=== PATIENT | male | born 1970 | race Caucasian/White ===

== ENCOUNTER 2017-01-11 06:25 | Inpatient (IN) | payer BC ==
[~2017-01-11] VITALS: Ht 180.3 cm; Wt 112.3 kg
--- NOTE | ~2017-01-11 | DS ---
PATIENT'S NAME: BRIANDA COFFMAN [facility] AGE: 46 Y [address] ROOM: [place] [address] LOCATION: GICU ADMIT DATE: 01/11/2017 Discharge Summary DISCHARGE DATE: 01/13/2017 FAMILY PHYSICIAN: Sawyer Valencia ATTENDING PHYSICIAN: July Richard PRIMARY DIAGNOSES: 1. Acute encephalopathy. 2. Delirium tremens. 3. Alcohol dependence. 4. Alcoholic hepatitis. 5. Thrombocytopenia. 6. Hypokalemia. 7. Hypomagnesemia. 8. Hypothyroidism. OPERATIONS/PROCEDURES: Abdominal ultrasound performed 01/11/2017 demonstrated fatty liver, no focal lesions, no ascites, and normal spleen. HISTORY OF PRESENTING ILLNESS/REASON FOR ADMISSION: Please refer to the H and P dictated 01/11/2017. HOSPITAL COURSE: The patient was admitted to the hospital as noted above, acutely encephalopathic, and upon transfer from an outside facility. He has a known history of alcohol abuse, alcohol dependence, and previous history of delirium tremens. He did not demonstrate any seizure activity. He was placed in the Intensive Care Unit. He was placed on the CIWA protocol. His clinical condition improved relatively quickly. He did receive supportive cares including IV fluids and symptomatic measures with IV lorazepam. By the end of the 3rd day of his hospital stay, he was felt to be essentially back at baseline. We did spend a good deal of time discussing alcohol treatment and alcohol treatment options for him. He refused consideration for inpatient care citing that he has accomplished this before unsuccessfully. Additionally, refused any sort of outpatient counseling or attending AA meetings. Additionally, he denied any suicidal thinking, self-destructive thinking, or homicidal ideations. I did discuss the case with SERA Napoles who will be assuming care for him in [place]. At that point, it was felt reasonable to allow discharge to home with plans for close clinical followup with Garry Blas. The patient himself indicated strong desire for abstinence from alcohol. PATIENT'S NAME: BRIANDA COFFMAN [facility] AGE: 46 Y [address] ROOM: [id number] [place] [id number] LOCATION: GICU ADMIT DATE: 01/11/2017 Discharge Summary DISCHARGE DATE: 01/13/2017 FAMILY PHYSICIAN: Sawyer Valencia ATTENDING PHYSICIAN: July Richard DISCHARGE INSTRUCTIONS: 1. Diet: Regular as tolerated. No alcohol. 2. Activity as tolerated. MEDICATIONS: 1. Mag oxide 400 mg p.o. daily. 2. Multiple vitamin daily. 3. Folate 1 mg p.o. daily. 4. Clonazepam 3 mg p.o. q.h.s. 5. Methylphenidate 20 mg p.o. b.i.d. 6. Levothyroxine 50 mcg p.o. daily. 7. Metoprolol-XL 50 mg p.o. daily. 8. Protonix 40 mg p.o. daily. 9. Duloxetine 60 mg p.o. daily. FOLLOW UP: He will follow up with Garry Blas PA-C in [place] in 3-5 days. CONDITION ON DISCHARGE: Fair. Total time spent on discharge process was 45 minutes. MD ANUM HUI/ronda /[id number] d: 01/14/17 0303 t: 01/15/17 1814, DISCHARGE SUMMARY
--- NOTE | ~2017-01-11 | HP ---
PATIENT'S NAME: BRIANDA COFFMAN [facility] AGE: 46 Y [address] ROOM: [address] [place] [id number] LOCATION: GICU ADMIT DATE: 01/11/2017 History & Physical DISCHARGE DATE: FAMILY PHYSICIAN: PHYSICIAN, UNKNOWN ATTENDING PHYSICIAN: TERI MAY DATE OF SERVICE: CHIEF COMPLAINT: Alcohol withdrawal, delirium tremens. HISTORY OF PRESENT ILLNESS: This is a 46-year-old male presenting from [facility] after presenting there with agitation and delirium. The patient has a long history of alcohol abuse and previous admission to this hospital as well and a lengthy stay within the ICU for management of alcohol withdrawal. The patient during my evaluation was sleepy but arousable and to my interaction with him after about 2 mg of IV Ativan and 5 mg of IV Haldol that he had at [facility] en route to here as well. So my conversations with him were pretty limited because of sedation. The report is that the patient is pretty agitated and difficult to control, requiring not much benzos and Haldol to calm him. Report is that the patient relapsed to drinking again and then stopped about two days ago, and then this happened. The patient apparently has had a bowel movement with dark- looking stool as well per report from [facility]. Otherwise, the patient's vital signs were stable and currently resting comfortably. PAST MEDICAL HISTORY: 1. Alcohol abuse. 2. History of DTs. SOCIAL HISTORY: The patient with a history of significant alcohol use and prior admission with this. No reports of smoking or drug use. FAMILY HISTORY: Unable to fully gather due to patient's current mental status. REVIEW OF SYSTEMS: A complete review of systems was not able to be gathered due to the patient's current mental status. PHYSICAL EXAMINATION: VITAL SIGNS: Blood pressure 129/88, pulse 98, and saturating 92% on 2 L of oxygen. The patient is afebrile though. GENERAL: The patient is sleepy, but arousable and awake, alert, oriented x2. PATIENT'S NAME: BRIANDA COFFMAN [facility] AGE: 46 Y [address] ROOM: [address] [place], [place] [address] LOCATION: GICU ADMIT DATE: 01/11/2017 History & Physical DISCHARGE DATE: FAMILY PHYSICIAN: PHYSICIAN, UNKNOWN ATTENDING PHYSICIAN: TERI MAY HEENT: Dry mucosal membranes. No scleral icterus. Conjunctival pallor noted however. HEART: S1 and S2 regular rate and rhythm. CHEST: Clear to auscultation bilaterally. ABDOMEN: Soft, nontender, and nondistended with positive bowel sounds. NEUROLOGIC: Grossly nonfocal. MUSCULOSKELETAL: No joint effusion, erythema, or tenderness noted. SKIN: Without rashes or lesions. LABORATORY DATA AND IMAGING STUDIES: Significant labs: The patient has AST of 2678, ALT of 931, total bilirubin of 2.4, and potassium 3.5. ASSESSMENT AND PLAN: 1. Delirium tremens. The patient has a recurrent history of this. Last drink about 48 hours ago. We will admit to the intensive care unit and closely manage. We will use CIWA protocol for now and escalate as needed. The patient apparently had been admitted for a similar problem last year requiring a lengthy ICU stay including intubation. 2. Alcoholic hepatitis. AST of 2678, ALT 931, and total bilirubin of 2.4. MDS score is around 10 based on labs at [place]. He will repeat these labs again. We will continue supportive care with IV fluids and electrolyte replacement for now and continue to monitor levels. We will also get an ultrasound of his liver to further assess. 3. Alcohol abuse. We will involve Social Care after he gets better from acute illness. 4. Deep venous thrombosis prophylaxis. We will use SCDs for concerns of possible dark-looking stool that he has had. We will keep an eye on his H and H's, and we will check stool for occult blood. MD TAMMIE SIMPSON/ronda /[id number] D: T: HISTORY & PHYSICAL
[~2017-01-11 06:25] MED LIST: FEOSOL325 MG PO; FOLIC ACID1 MG PO; HYGROTON25 MG PO; INDOCIN50 MG PO; KLONOPIN1 MG PO; LEVOTHROID (SY50 MCG PO; MAGNESIUM250 M1 PO; METADATE ER20 MG PO; PAXIL20 MG PO; PRILOSEC20 MG PO; THERAGRAN-M1 TAB PO; TOPROL XL25 MG PO; TRANXENE T-TAB7.5 MG PO; ZANTAC (NON-FO150 MG PO
[2017-01-11 10:37] LABS: BASOPHIL % 0.3 %; EOSINOPHIL % 0.3 %; HEMATOCRIT 39.4 % (37.0-53.0); HEMOGLOBIN 13.4 g/dL (12.0-17.0); IMMATURE GRANULOCYTE % 0.3 %; LYMPHOCYTE # 0.6 K/uL (0.8-4.0); LYMPHOCYTE % 7.8 %; MCH 33.3 pg (27.0-34.0); MONOCYTE # 0.2 K/uL (0.0-1.0); MONOCYTE % 2.5 %; MPV 10.6 fl (9.4-12.4); NEUTROPHIL # (ANC) 6.6 K/uL (1.4-9.0); NEUTROPHIL % 88.8 %; NRBC % 0 /100WBC (0-0.00); RBC 4.02 M/uL (4.00-6.00); RDW-CV 12.9 % (11.9-14.6); WBC 7.5 K/uL (4.0-11.0)
[2017-01-11 10:38] LABS: PLATELET COUNT 33 K/uL (150-450)
[2017-01-11 10:43] LABS: INR - (THERAPEUTIC) 1.48 (0.92-1.07); PROTIME 15.6 SECONDS (9.8-11.4)
[2017-01-11 10:49] LABS: MAGNESIUM 1.8 mg/dL (1.8-2.6)
[2017-01-11 10:57] LABS: ALBUMIN 3.6 gm/dL (3.5-5.0); ALK PHOS 85 IU/L (33-138); ANION GAP 11.5 (10.0-19.0); BLOOD UREA NITROGEN 18 mg/dL (6-24); CHLORIDE 93 mMol/L (96-110); CO2 31 mMol/L (22-32); CREATININE 1.2 mg/dL (0.6-1.3); ESTIMATED GFR (MDRD EQUATION) > 60; POTASSIUM 3.5 mMol/L (3.7-5.1); SODIUM 132 mMol/L (135-145); TOTAL BILIRUBIN 1.6 mg/dL (0.0-1.5); TOTAL PROTEIN 6.9 g/dL (6.0-8.4)
[2017-01-11 11:22] LABS: ALT 2742 IU/L (12-78); AST 8426 IU/L (10-40)
[2017-01-11 14:18] LABS: AMPHETAMINE NEGATIVE (NEGATIVE); BARBITURATE POSITIVE (NEGATIVE); COCAINE NEGATIVE (NEGATIVE); OPIATES POSITIVE (NEGATIVE)
[2017-01-12 05:04] LABS: BASOPHIL # 0.1 K/uL (0.0-0.2); BASOPHIL % 1.1 %; EOSINOPHIL # 0.1 K/uL (0.0-0.5); EOSINOPHIL % 1.7 %; HEMATOCRIT 36.6 % (37.0-53.0); HEMOGLOBIN 12.5 g/dL (12.0-17.0); IMMATURE GRANULOCYTE % 0.2 %; LYMPHOCYTE # 0.9 K/uL (0.8-4.0); LYMPHOCYTE % 16.6 %; MCH 33.2 pg (27.0-34.0); MCHC 34.2 gm/dL (32.0-36.5); MCV 97.3 fl (83.0-98.0); MONOCYTE # 0.3 K/uL (0.0-1.0); MONOCYTE % 4.6 %; MPV 9.6 fl (9.4-12.4); NEUTROPHIL # (ANC) 4.1 K/uL (1.4-9.0); NEUTROPHIL % 75.8 %; NRBC % 0 /100WBC (0-0.00); RBC 3.76 M/uL (4.00-6.00); RDW-CV 12.8 % (11.9-14.6); WBC 5.4 K/uL (4.0-11.0)
[2017-01-12 05:06] LABS: PLATELET COUNT 45 K/uL (150-450)
[2017-01-12 05:24] LABS: ANION GAP 9.3 (10.0-19.0); BLOOD UREA NITROGEN 18 mg/dL (6-24); CALCIUM 7.8 mg/dL (8.5-10.5); CHLORIDE 100 mMol/L (96-110); CO2 29 mMol/L (22-32); CREATININE 1.1 mg/dL (0.6-1.3); ESTIMATED GFR (MDRD EQUATION) > 60; MAGNESIUM 2.1 mg/dL (1.8-2.6); PHOSPHORUS 2.4 mg/dL (2.5-4.9); POTASSIUM 3.3 mMol/L (3.7-5.1); SODIUM 135 mMol/L (135-145)
[2017-01-12] MEDS ORDERED: CYMBALTA60 MG PO (10:10)
[2017-01-13 05:03] LABS: BASOPHIL # 0.1 K/uL (0.0-0.2); BASOPHIL % 0.6 %; EOSINOPHIL # 0.2 K/uL (0.0-0.5); HEMATOCRIT 35.9 % (37.0-53.0); HEMOGLOBIN 12.5 g/dL (12.0-17.0); IMMATURE GRANULOCYTE % 0.2 %; LYMPHOCYTE # 0.9 K/uL (0.8-4.0); LYMPHOCYTE % 9.2 %; MCH 33.6 pg (27.0-34.0); MCHC 34.8 gm/dL (32.0-36.5); MCV 96.5 fl (83.0-98.0); MONOCYTE # 0.6 K/uL (0.0-1.0); MPV 10.3 fl (9.4-12.4); NEUTROPHIL # (ANC) 7.7 K/uL (1.4-9.0); NRBC % 0 /100WBC (0-0.00); RBC 3.72 M/uL (4.00-6.00); RDW-CV 12.5 % (11.9-14.6); WBC 9.4 K/uL (4.0-11.0)
[2017-01-13 05:07] LABS: PLATELET COUNT 80 K/uL (150-450)
[2017-01-13 05:23] LABS: ALBUMIN 3.2 gm/dL (3.5-5.0); ALK PHOS 104 IU/L (33-138); ANION GAP 11.1 (10.0-19.0); BLOOD UREA NITROGEN 11 mg/dL (6-24); CHLORIDE 101 mMol/L (96-110); CO2 28 mMol/L (22-32); CREATININE 0.9 mg/dL (0.6-1.3); ESTIMATED GFR (MDRD EQUATION) > 60; POTASSIUM 3.1 mMol/L (3.7-5.1); SODIUM 137 mMol/L (135-145); TOTAL BILIRUBIN 1.7 mg/dL (0.0-1.5); TOTAL PROTEIN 6.3 g/dL (6.0-8.4)
[2017-01-13 05:28] LABS: MAGNESIUM 1.6 mg/dL (1.8-2.6); PHOSPHORUS 2.6 mg/dL (2.5-4.9)
[2017-01-13 05:38] LABS: ALT 2004 IU/L (12-78); AST 1497 IU/L (10-40)
[2017-01-13] MEDS ORDERED: TOPROL XL 5050 MG PO (09:45)
[2017-01-13] MEDS ORDERED: PROTONIX40 MG PO (09:47)
[2017-01-13] MEDS ORDERED: MAG-OX-400(241400 MG PO (09:50)
[2017-01-13] MEDS ORDERED: THERA-VITE W/ B1 TAB PO (09:51)
[2017-01-13] MEDS ORDERED: FOLIC ACID1 MG PO (09:57)
== END 2017-01-13 12:30 | disposition disaster alternative care site (69) | DRG 896 ==
LOC: GICU 07:49 → GPCU 07:49 → GICU 09:05
PROVIDERS: Family Medicine; ADMIT Internal Medicine
DX: F10.231 Alcohol dependence with withdrawal delirium (principal); G93.40 Encephalopathy, unspecified; D69.6 Thrombocytopenia, unspecified; K70.10 Alcoholic hepatitis without ascites; E83.42 Hypomagnesemia; E87.6 Hypokalemia; E03.9 Hypothyroidism, unspecified; G47.00 Insomnia, unspecified
CPT/HCPCS: C9113; G0480; J2060; J3411; J3475; J3480; J7030; J7050

== ENCOUNTER 2017-03-11 20:37 | Inpatient (IN) | payer BC ==
[~2017-03-11] VITALS: Ht 180.3 cm; Wt 108.7 kg
--- NOTE | ~2017-03-11 | DS ---
PATIENT'S NAME: BRIANDA COFFMAN [facility] AGE: 46 Y [address] ROOM: [id number] [place], [place] [address] LOCATION: GPCU ADMIT DATE: 03/11/2017 Discharge Summary DISCHARGE DATE: 03/14/2017 FAMILY PHYSICIAN: Alhaji Yang MD ATTENDING PHYSICIAN: Yosi Cosme REASON FOR ADMISSION: Hematemesis. PRINCIPAL DIAGNOSIS: Candidal esophagitis. SECONDARY DIAGNOSES: 1. Alcohol withdrawal in setting of ongoing alcohol abuse. 2. Essential hypertension. 3. Hypothyroidism. 4. Chronic NSAID use. 5. Acute kidney injury, resolved. 6. Mild acute hypoxic respiratory failure, resolved (probable obstructive sleep apnea). PROCEDURES DURING ADMISSION: EGD performed March 12 showing severe esophagitis with probable Johanna esophagitis by appearance with a white coating and ulcerations, biopsies done as well as gastric biopsies done with H. pylori staining negative. HOSPITAL COURSE: Mr. Coffman is a pleasant 46-year-old gentleman with medical history notable for heavy alcohol use and multiple admissions for withdrawals and DTs admitted to an outside facility with hematemesis. He had admitted to drinking a 5th of hard liquor every day with the last drink just a day prior to admission. He had been vomiting multiple times prior to developing hematemesis. He had endorsed ongoing odynophagia with occasional chest discomfort as well prior to admission. Initial lab workup notable for leukocytosis to 17 and creatinine of 1.5. On hospital day 2, the patient was sent for EGD with findings noted above and concern for candidal esophagitis. He was started on nystatin therapy as well as continued on PPI. He endorsed ongoing pain during his course until date of discharge when he had noted things had significantly improved. He did require GI cocktail x2 early on admission for pain and was sent to continue home [place] for pain. Findings of probable candidal esophagitis did prompt HIV testing with concern for immuno- compromised state, which was negative. No other obvious endocrinopathies were appreciated during stay. Of note, the patient had been taking both meloxicam and naproxen at home, which likely contributed to presentation. During stay, there were no significant concerns related to alcohol withdrawal. The patient was monitored on the CIWA protocol and did well. The patient will be sent home with nystatin as well as sucralfate and pain medications as needed. He should follow up with his PCP in approximately 1 week. I did discuss with the PATIENT'S NAME: BRIANDA COFFMAN [facility] AGE: 46 Y [address] ROOM: [id number] [place], [place] [address] LOCATION: GPCU ADMIT DATE: 03/11/2017 Discharge Summary DISCHARGE DATE: 03/14/2017 FAMILY PHYSICIAN: Alhaji Yang MD ATTENDING PHYSICIAN: Yosi Cosme A patient that should symptoms fail to improve over the coming weeks once the biopsies are finalized, he may need a repeat endoscopy to ensure adequate treatment of candidal esophagitis versus empiric retreatment with a longer course. Hemoglobin on date of discharge is 12.9. Creatinine had returned to normal at 1.1. Vital signs stable. No hemodynamic instability during stay. MEDICATIONS AND PERTINENT CHANGES: Addition of nystatin and sucralfate. PENDING TESTS AT TIME OF DISCHARGE: I would recommend outpatient sleep study be performed as the patient was noted to have mild hypoxic respiratory failure while sleeping at night and would suspect obstructive sleep apnea. CONSULTANTS: Gastroenterology. CONDITION ON DATE OF DISCHARGE: VITAL SIGNS: Last known vital signs prior to discharge notable for temp 98.5, pulse 86, respirations 18, blood pressure 149/96, and saturating 94% on room air. GENERAL: No acute distress, sitting up in bed, comfortable. CARDIOVASCULAR: Regular rate and rhythm. No murmurs, rubs, or gallops appreciated. LUNGS: Clear to auscultation bilaterally. Normal effort on room air. ABDOMEN: Soft, nontender, nondistended. Normoactive bowel sounds. EXTREMITIES: Without edema. NEUROLOGICAL: Alert, oriented, no focal deficits appreciated. DISPOSITION: The patient was discharged home. Advised on selecting a single nonsteroidal agent to use sparingly, but would recommend discontinuation of multiple agents concurrently. We would also discourage further alcohol use as this likely contributed to his presentation. Okay to return to normal diet sucralfate given on discharge. Followup visits and tests will be with PCP in 1 week. Time spent on date of discharge including direct patient care and coordination of discharge activities was 37 minutes. VIRGILIO D SHUDA, MD JDS/modl /[id number] d: 03/15/17 0141 t: 03/15/17 0741, DISCHARGE SUMMARY
--- NOTE | ~2017-03-11 | HP ---
PATIENT'S NAME: BRIANDA COFFMAN [facility] AGE: 46 Y [address] ROOM: [place] [address] LOCATION: GPCU ADMIT DATE: 03/11/2017 History & Physical DISCHARGE DATE: FAMILY PHYSICIAN: PHYSICIAN, UNKNOWN ATTENDING PHYSICIAN: ROB DAVIS DATE OF SERVICE: CHIEF COMPLAINT: Hematemesis. HISTORY OF PRESENT ILLNESS: A 46-year-old gentleman with a past medical history of heavy alcohol use, had multiple admissions for alcohol withdrawals and delirium tremens, was admitted to the outside facility with hematemesis. On my encounter, the patient said that he has been drinking a fifth of hard liquor every day with the last drink last night. He started throwing up a lot and after some time the emesis turned brown and then he had multiple episodes of dark red blood as well. He did not report any bright red blood in the emesis. He did endorse having chest pain since then which increase on deep breathing or eating anything. He does not complain of any palpitations, any shortness of breath, any sputum production, any abdominal pain, any constipation, or any diarrhea. He presented to the outside facility and the remarkable findings included white count of 17 and creatinine of 1.5. REVIEW OF SYSTEMS: All other systems reviewed were negative except for those mentioned in the HPI. PAST MEDICAL HISTORY: Heavy alcohol abuse, delirium tremens, depression, hypertension, hypothyroidism. SOCIAL HISTORY: Heavy alcohol use, drinks a fifth of hard liquor every day. FAMILY HISTORY: Mother had diabetes. MEDICATIONS: Being reconciled right now. PHYSICAL EXAMINATION: VITAL SIGNS: Blood pressure 140/70, pulse 103, respirations 16, afebrile. GENERAL: No acute distress. Alert and oriented x3. PATIENT'S NAME: BRIANDA COFFMAN [facility] AGE: 46 Y [address] ROOM: [place] [id number] LOCATION: GPCU ADMIT DATE: 03/11/2017 History & Physical DISCHARGE DATE: FAMILY PHYSICIAN: PHYSICIAN, UNKNOWN ATTENDING PHYSICIAN: ROB DAVIS HEENT: Head; atraumatic, normocephalic. Eyes, nonicteric. No pallor. Oropharynx, dry mucous membranes. CARDIOVASCULAR: S1, S2. No murmur, gallops, or rubs. LUNGS: Clear to auscultation bilaterally. ABDOMEN: Soft. Nontender, nondistended. Bowel sounds are present. EXTREMITIES: No clubbing, cyanosis, or edema. PSYCH: Normal affect, mood, and speech. NEUROLOGIC: Cranial nerves 2 through 12 intact. No motor or sensory deficits were noted. ENDOCRINE: No thyromegaly or myxedema noted. LYMPHATICS: No lymphangiitis or lymphadenopathy noted. SKIN: No bruises or dryness noted. MUSCULOSKELETAL: No muscle tenderness or joint swelling noted. DIAGNOSTIC DATA: EKG done at the outside facility showed sinus tachycardia without any acute ST- T wave changes. One set of troponin was negative. Amylase and lipase were negative. As mentioned above, he had OLIVA with a creatinine of 1.5 and hemoglobin of 17. He was transferred here for further medical care. On arrival to our facility, his white count was 14, hemoglobin was 12 from 15, platelets are 286. Lactate was 3.6. Complete metabolic panel was remarkable for hypokalemia with a potassium of 3.4, creatinine was still 1.5, BUN 27. ASSESSMENT: 1. Acute blood loss anemia. 2. Upper gastrointestinal bleed. 3. Likely Moira-Good tear. 4. Acute kidney injury. 5. Alcoholic ketosis. 6. Lactic acidosis. 7. Hypokalemia. PLAN: We are going to admit this patient. Maintain 2 IV accesses. Start Protonix drip. Start IV fluids. GI consultation in the morning. Start CIWA protocol, Librium 100 mg oral right now. Monitor creatinine and H and H. N.p.o. for now. Nausea and pain control. Repeat two sets of troponin given he is having some chest pain, though EKG and troponin at the outside facility have been unremarkable. Cross and screen. SCDs for DVT prophylaxis. Further management will depend on his progress in the hospital. ROB DAVIS MD PATIENT'S NAME: BRIANDA COFFMAN [facility] AGE: 46 Y [address] ROOM: [id number] [place] [id number] LOCATION: [facility] ADMIT DATE: 03/11/2017 History & Physical DISCHARGE DATE: FAMILY PHYSICIAN: PHYSICIAN, UNKNOWN ATTENDING PHYSICIAN: ROB DAVIS /[id number] D: [id number] T: 213 HISTORY & PHYSICAL
--- NOTE | ~2017-03-11 | CON ---
PATIENT'S NAME: BRIANDA COFFMAN [facility] AGE: 46 Y [address] ROOM: [place] [address] LOCATION: GPCU ADMIT DATE: 03/11/2017 Consultation DISCHARGE DATE: FAMILY PHYSICIAN: PHYSICIAN, UNKNOWN ATTENDING PHYSICIAN: ROB COSME DATE OF CONSULTATION: 03/12/2017 REFERRING PHYSICIAN: INDY VARMA MD REFERRING PROVIDER: Rob Cosme MD REASON FOR CONSULTATION: Hematemesis, likely upper GI bleed. HISTORY OF PRESENT ILLNESS: This is a pleasant 46-year-old gentleman who has had a past medical history of significant heavy alcohol use that he admits to a fifth of hard alcohol per day. He has had multiple admissions for acute withdrawals and delirium tremens. He was admitted at an outside facility with hematemesis. The patient states that he began throwing up violently and then resulted in the emesis turning brown with some dark red blood as well. The patient denies any melena or blood in the stool to his knowledge. He does report undergoing an upper endoscopy approximately 20 years ago. In discussion with the patient and his alcohol use, he does state that he previously was diagnosed with "cirrhosis." Denies any previous diagnosis of esophageal varices. He also has accompanying mid-epigastric discomfort. Denies any acute chest pain, chest pressure, shortness of breath, fever, or chills. PAST MEDICAL HISTORY: Alcohol abuse, delirium tremens, depression, hypertension, hypothyroidism. SOCIAL HISTORY: Heavy alcohol use with a fifth of hard alcohol daily. Denies any tobacco or illicit drug use. FAMILY HISTORY: The patient's mother had diabetes. Denies any known gastrointestinal diseases or cancers. ALLERGIES: PENICILLIN AND AMOXICILLIN. CURRENT MEDICATIONS: Please refer to the medication administration record. PATIENT'S NAME: BRIANDA COFFMAN [facility] AGE: 46 Y [address] ROOM: [place] [id number] LOCATION: GPCU ADMIT DATE: 03/11/2017 Consultation DISCHARGE DATE: FAMILY PHYSICIAN: PHYSICIAN, UNKNOWN ATTENDING PHYSICIAN: ROB COSME A REVIEW OF SYSTEMS: All point review of systems was completed. All were negative except for those identified in the history of present illness. PHYSICAL EXAMINATION: GENERAL: A pleasant, 46-year-old gentleman who is lying in bed, who appears to be in no acute distress. VITAL SIGNS: Temperature 98.1, pulse of 112, oxygen saturation is 95%, blood pressure 156/78, respirations are 20. SKIN: [place], warm, dry. No jaundice. HEENT: Head is normocephalic and atraumatic. Pupils are equal, round, and reactive to light. Sclerae are clear. Nonicteric. Oral mucosa is pink and moist. No thyromegaly. NECK: Soft and supple. CARDIOVASCULAR: Regular, normal S1, S2. RESPIRATORY: Respirations are even and unlabored. LUNGS: Clear to auscultation. ABDOMEN: Soft, round, mildly tender throughout. No rebound, rigidity, or guarding noted. Bowel sounds positive x4 quadrants. MUSCULOSKELETAL: No muscle weakness or atrophy. EXTREMITIES: No edema. NEUROLOGICAL: Grossly nonfocal. LABORATORY AND DIAGNOSTIC DATA: White blood cell count is 17.0, hemoglobin of 12.4, down from 12.7 on admission, hematocrit of 36.3, and platelets of 276. Chemistry panel includes a glucose of 82, BUN of 26, creatinine 1.4, sodium 136, potassium of 3.3, chloride of 97, CO2 of 28. Albumin of 3.6, AST of 19, ALT of 17, alkaline phosphatase of 85, total bilirubin of 1.1, phosphorus of 2.6, magnesium of 2.7, lactate of 1.1. ASSESSMENT/PLAN: Again, this is a very pleasant, 46-year-old gentleman with past medical history significant for heavy alcohol use in the form of a fifth of hard alcohol daily. The patient was admitted with hematemesis and midepigastric discomfort. The patient does recall having an upper endoscopy completed approximately 20 years ago without any varices per his recollection. The patient's hemoglobin remained stable as well as hemodynamically he was stable. At this point, we will go forth with an upper endoscopy for further evaluation of suspected upper GI bleed ruling out varices versus possible Moira-Good tear. The patient currently is on a Protonix drip. This will be continued until further recommendations status post upper endoscopy. Thank you for this consult. PATIENT'S NAME: BRIANDA COFFMAN [facility] AGE: 46 Y [address] ROOM: [facility] [place] [address] LOCATION: GPCU ADMIT DATE: 03/11/2017 Consultation DISCHARGE DATE: FAMILY PHYSICIAN: PHYSICIAN, UNKNOWN ATTENDING PHYSICIAN: ROB COSME HERNANDEZ OTOOLE APRN FOR MD LAVERNE BENNETT/ronda /[id number] d: 03/12/17817 t: 03/16/17 1908, CONSULTATION REPORT
[~2017-03-11 20:37] MED LIST changes: +CYMBALTA60 MG PO; +MAG-OX-400(241400 MG PO; +PROTONIX40 MG PO; +THERA-VITE W/ B1 TAB PO; +TOPROL XL 5050 MG PO
[2017-03-11] MEDS ORDERED: HYGROTON25 MG PO (22:33)
[2017-03-11] MEDS ORDERED: FLEXERIL10 MG PO (22:35)
[2017-03-11] MEDS ORDERED: MOBIC15 MG PO (22:39)
[2017-03-11] MEDS ORDERED: NAPROSYN500 MG PO (22:41)
[2017-03-11] MEDS ORDERED: NORCO 5-325 TA1 EACH PO (22:45)
[2017-03-11] MEDS ORDERED: PERCOCET 5-3251 EACH PO (22:49)
[2017-03-11 22:53] LABS: BASOPHIL # 0.1 K/uL (0.0-0.2); BASOPHIL % 0.3 %; HEMATOCRIT 37.8 % (37.0-53.0); HEMOGLOBIN 12.7 g/dL (12.0-17.0); IMMATURE GRANULOCYTE # 0.1 K/uL (0.0-0.3); IMMATURE GRANULOCYTE % 0.3 %; LYMPHOCYTE # 2.6 K/uL (0.8-4.0); LYMPHOCYTE % 17.1 %; MCH 32.3 pg (27.0-34.0); MCHC 33.6 gm/dL (32.0-36.5); MCV 96.2 fl (83.0-98.0); MONOCYTE # 1.5 K/uL (0.0-1.0); MONOCYTE % 10.2 %; MPV 9.2 fl (9.4-12.4); NEUTROPHIL # (ANC) 10.7 K/uL (1.4-9.0); NEUTROPHIL % 72.1 %; NRBC % 0 /100WBC (0-0.00); RBC 3.93 M/uL (4.00-6.00); RDW-CV 12.7 % (11.9-14.6); WBC 14.9 K/uL (4.0-11.0)
[2017-03-11 22:54] LABS: PLATELET COUNT 286 K/uL (150-450)
[2017-03-11 23:11] LABS: ALBUMIN 3.7 gm/dL (3.5-5.0); ANION GAP 14.4 (10.0-19.0); CALCIUM 8.5 mg/dL (8.5-10.5); CREATININE 1.5 mg/dL (0.6-1.3); POTASSIUM 3.4 mMol/L (3.7-5.1); TOTAL PROTEIN 7.6 g/dL (6.0-8.4)
[2017-03-11 23:13] LABS: TOTAL BILIRUBIN 0.8 mg/dL (0.0-1.5)
[2017-03-11 23:52] LABS: INR - (THERAPEUTIC) 1.04 (0.92-1.07); PROTIME 10.9 SECONDS (9.8-11.4)
[2017-03-11 23:57] LABS: MAGNESIUM 2.5 mg/dL (1.8-2.6); PHOSPHORUS 3.9 mg/dL (2.5-4.9)
[2017-03-12 03:38] LABS: BASOPHIL % 0.2 %; EOSINOPHIL % 0.1 %; HEMATOCRIT 36.3 % (37.0-53.0); HEMOGLOBIN 12.4 g/dL (12.0-17.0); IMMATURE GRANULOCYTE # 0.1 K/uL (0.0-0.3); IMMATURE GRANULOCYTE % 0.3 %; LYMPHOCYTE # 2.2 K/uL (0.8-4.0); LYMPHOCYTE % 12.9 %; MCH 32.9 pg (27.0-34.0); MCHC 34.2 gm/dL (32.0-36.5); MCV 96.3 fl (83.0-98.0); MONOCYTE # 1.7 K/uL (0.0-1.0); MONOCYTE % 9.8 %; MPV 9.4 fl (9.4-12.4); NEUTROPHIL % 76.7 %; NRBC % 0 /100WBC (0-0.00); PLATELET COUNT 276 K/uL (150-450); RBC 3.77 M/uL (4.00-6.00); RDW-CV 12.8 % (11.9-14.6)
[2017-03-12 03:58] LABS: ALBUMIN 3.6 gm/dL (3.5-5.0); ANION GAP 14.3 (10.0-19.0); CALCIUM 8.2 mg/dL (8.5-10.5); CREATININE 1.4 mg/dL (0.6-1.3); MAGNESIUM 2.7 mg/dL (1.8-2.6); PHOSPHORUS 2.6 mg/dL (2.5-4.9); POTASSIUM 3.3 mMol/L (3.7-5.1); TOTAL BILIRUBIN 1.1 mg/dL (0.0-1.5); TOTAL PROTEIN 7.3 g/dL (6.0-8.4)
[2017-03-12 07:13] LABS: HEMATOCRIT 36.9 % (37.0-53.0); HEMOGLOBIN 12.3 g/dL (12.0-17.0)
[2017-03-12 08:29] LABS: AMPHETAMINE NEGATIVE (NEGATIVE); BARBITURATE NEGATIVE (NEGATIVE); COCAINE NEGATIVE (NEGATIVE); OPIATES POSITIVE (NEGATIVE)
[2017-03-12 15:36] LABS: HEMATOCRIT 35.5 % (37.0-53.0); HEMOGLOBIN 11.9 g/dL (12.0-17.0)
[2017-03-12 19:26] LABS: HEMATOCRIT 33.9 % (37.0-53.0); HEMOGLOBIN 11.5 g/dL (12.0-17.0)
[2017-03-12 23:49] LABS: HEMATOCRIT 34.2 % (37.0-53.0); HEMOGLOBIN 11.6 g/dL (12.0-17.0)
[2017-03-13 03:41] LABS: BASOPHIL % 0.4 %; EOSINOPHIL % 0.5 %; HEMATOCRIT 33.7 % (37.0-53.0); HEMOGLOBIN 11.2 g/dL (12.0-17.0); IMMATURE GRANULOCYTE % 0.2 %; LYMPHOCYTE # 1.8 K/uL (0.8-4.0); LYMPHOCYTE % 22.2 %; MCH 33.1 pg (27.0-34.0); MCHC 33.2 gm/dL (32.0-36.5); MCV 99.7 fl (83.0-98.0); MONOCYTE # 0.9 K/uL (0.0-1.0); MONOCYTE % 10.9 %; MPV 9.1 fl (9.4-12.4); NEUTROPHIL # (ANC) 5.4 K/uL (1.4-9.0); NEUTROPHIL % 65.8 %; NRBC % 0 /100WBC (0-0.00); PLATELET COUNT 235 K/uL (150-450); RBC 3.38 M/uL (4.00-6.00); RDW-CV 12.4 % (11.9-14.6); WBC 8.3 K/uL (4.0-11.0)
[2017-03-13 03:52] LABS: ANION GAP 8.8 (10.0-19.0); CALCIUM 7.7 mg/dL (8.5-10.5); CREATININE 1.1 mg/dL (0.6-1.3); MAGNESIUM 2.8 mg/dL (1.8-2.6); PHOSPHORUS 2.2 mg/dL (2.5-4.9); POTASSIUM 3.8 mMol/L (3.7-5.1)
[2017-03-13 08:29] LABS: HEMATOCRIT 34.5 % (37.0-53.0); HEMOGLOBIN 11.4 g/dL (12.0-17.0)
[2017-03-13 11:29] LABS: HEMATOCRIT 34.1 % (37.0-53.0); HEMOGLOBIN 11.4 g/dL (12.0-17.0)
[2017-03-13 15:11] LABS: HEMATOCRIT 34.6 % (37.0-53.0); HEMOGLOBIN 11.7 g/dL (12.0-17.0)
[2017-03-13 19:22] LABS: HEMOGLOBIN 12.1 g/dL (12.0-17.0)
[2017-03-13 23:42] LABS: HEMATOCRIT 35.9 % (37.0-53.0); HEMOGLOBIN 12.2 g/dL (12.0-17.0)
[2017-03-14 03:43] LABS: HEMATOCRIT 34.9 % (37.0-53.0)
[2017-03-14 04:03] LABS: ANION GAP 9.7 (10.0-19.0); CALCIUM 8.6 mg/dL (8.5-10.5); CREATININE 1.1 mg/dL (0.6-1.3); MAGNESIUM 2.1 mg/dL (1.8-2.6); PHOSPHORUS 2.8 mg/dL (2.5-4.9); POTASSIUM 3.7 mMol/L (3.7-5.1)
[2017-03-14 07:58] LABS: HEMATOCRIT 36.2 % (37.0-53.0)
[2017-03-14 11:57] LABS: HEMATOCRIT 37.7 % (37.0-53.0); HEMOGLOBIN 12.9 g/dL (12.0-17.0)
[2017-03-14] MEDS ORDERED: NYSTATIN100000 UNI PO (14:39)
[2017-03-14] MEDS ORDERED: CARAFATE1 GM PO (14:49)
== END 2017-03-14 15:25 | disposition disaster alternative care site (69) | DRG 368 ==
LOC: GPCU 20:37
PROVIDERS: Internal Medicine; ADMIT Internal Medicine
PROC: 0DB28ZX Excision of Middle Esophagus, Via Natural or Artificial Opening Endoscopic, Diagnostic (ICD-10-PCS; principal; 2017-03-12)
DX: B37.81 Candidal esophagitis (principal); J96.01 Acute respiratory failure with hypoxia; D62 Acute posthemorrhagic anemia; F10.239 Alcohol dependence with withdrawal, unspecified; N17.9 Acute kidney failure, unspecified; I10 Essential (primary) hypertension; E03.9 Hypothyroidism, unspecified; Z79.1 Long term (current) use of non-steroidal anti-inflammatories (NSAID); G47.33 Obstructive sleep apnea (adult) (pediatric)
CPT/HCPCS: C9113; G0480; J0131; J1200; J2270; J2405; J3411; J3475; J7030; J7040; J7120